=== PATIENT | male | born 1955 | race Caucasian/White ===

== ENCOUNTER 2021-01-18 08:09 | Emergency (ER) | payer OTHER ==
--- NOTE | 2021-01-18 10:55 | EDM.PDOC ---
ED HPI GENERAL MEDICAL PROBLEM - General Chief Complaint: Gastrointestinal Problem Stated Complaint: DIARRHEA/L ARM SKIN COMPLAINT Time Seen by Provider: 01/18/21 08:22 Source of Information: Reports: Patient History Limitations: Reports: No Limitations - History of Present Illness INITIAL COMMENTS - FREE TEXT/NARRATIVE: The patient presents with a rash and diarrhea. 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 He is on antibiotics and antivirals. He has had diarrhea for a few weeks. He was on immodium and his doctor told him to stop for awhile and see how it goes. He did and he still has diarrhea. He has no fever, chills, cough, chest pain, shortness of breath, abdominal pain, nausea or vomiting. He has some hives on his left arm, back and right leg. He also had some swelling to his lips this morning. He is not on any new medications. He has not used any new soaps, lotions or detergents. He is traveling through on vacation. 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 Denies: Abdominal Pain, Nausea, Vomiting : Reports: No Symptoms Musculoskeletal: Reports: No Symptoms Skin: Reports: Rash ED EXAM, GI/ABD - Physical Exam Exam: See Below Exam Limited By: No Limitations General Appearance: Alert, No Apparent Distress Ears: Normal External Exam Nose: Normal Inspection Throat/Mouth: Normal Inspection Head: Atraumatic, Normocephalic Neck: Normal Inspection Respiratory/Chest: No Respiratory Distress, Lungs Clear, Normal Breath Sounds Cardiovascular: Regular Rate, Rhythm, No Edema, No Murmur GI/Abdominal Exam: Soft, Non-Tender, No Organomegaly, No Mass Extremities: Normal Inspection Neurological: Alert, Oriented, No Motor/Sensory Deficits Skin Exam: Other (Urticaria to left arm, back and right leg. No swelling of lips now.) Course - Vital Signs Last Recorded V/S: Last Vital Signs Temp 97 F 01/18/21 08:20 Pulse 82 01/18/21 08:20 Resp 18 01/18/21 08:20 BP 116/70 01/18/21 08:20 Pulse Ox 96 01/18/21 08:20 - Orders/Labs/Meds Orders: Active Orders 24 hr Category Date Time Status OVA & PARASITES BY IMMUNOASSAY [MREF] Stat Lab 01/18/21 08:44 Ordered STOOL CULTURE/SHIGA TOXIN [MREF] Stat Lab 01/18/21 08:44 Ordered Labs: Laboratory Tests 01/18/21 01/18/21 01/18/21 Range/Units 08:55 08:55 09:35 WBC 4.54 (4.23-9.07) K/mm3 RBC 4.08 L (4.63-6.08) M/mm3 Hgb 13.0 L (13.7-17.5) gm/dl Hct 37.8 L (40.1-51.0) % MCV 92.6 H (79.0-92.2) fl MCH 31.9 (25.7-32.2) pg MCHC 34.4 (32.2-35.5) g/dl RDW Std Deviation 44.2 H (35.1-43.9) fL Plt Count 200 (163-337) K/mm3 MPV 8.3 L (9.4-12.3) fl Neut % (Auto) 68.8 H (34.0-67.9) % Lymph % (Auto) 19.8 L (21.8-53.1) % [place] % (Auto) 9.0 (5.3-12.2) % Eos % (Auto) 2.0 (0.8-7.0) Baso % (Auto) 0.2 (0.1-1.2) % Neut # (Auto) 3.12 (1.78-5.38) K/mm3 Lymph # (Auto) 0.90 L (1.32-3.57) K/mm3 [place] # (Auto) 0.41 (0.30-0.82) K/mm3 Eos # (Auto) 0.09 (0.04-0.54) K/mm3 Baso # (Auto) 0.01 (0.01-0.08) K/mm3 Sodium 137 (136-145) mEq/L Potassium 4.6 (3.5-5.1) mEq/L Chloride 103 (98-107) mEq/L Carbon Dioxide 27 (21-32) mEq/L Anion Gap 11.6 (5-15) BUN 11 (7-18) mg/dL Creatinine 1.1 (0.7-1.3) mg/dL Est Cr Clr Drug Dosing 66.50 mL/min Estimated GFR (MDRD) > 60 (>60) mL/min BUN/Creatinine Ratio 10.0 L (14-18) Glucose 93 (70-99) mg/dL Calcium 7.8 L (8.5-10.1) mg/dL Total Bilirubin 0.3 (0.2-1.0) mg/dL AST 23 (15-37) U/L ALT 34 (16-63) U/L Alkaline Phosphatase 103 (46-116) U/L Total Protein 6.3 L (6.4-8.2) g/dl Albumin 3.3 L (3.4-5.0) g/dl Globulin 3.0 gm/dL Albumin/Globulin Ratio 1.1 (1-2) C.difficile [id number] Presumptive negative C. difficile Tox (PCR) Negative - Re-Assessments/Exams Free Text/Narrative Re-Assessment/Exam: 01/18/21 10:54 I did labs and got stool sample. His CBC and CMP looks good. His stool was negative for c-dif. He does not want to be back on prednisone. He will try claritin, pepcid and benadryl. Departure - Departure Time of Disposition: 10:55 Disposition: Home, Self-Care 01 Condition: Good Clinical Impression: Hives of unknown origin Diarrhea Qualifiers: Diarrhea type: unspecified type Qualified Code(s): R19.7 - Diarrhea, unspecified - Discharge Information *PRESCRIPTION DRUG MONITORING PROGRAM REVIEWED*: Not Applicable *COPY OF PRESCRIPTION DRUG MONITORING REPORT IN PATIENT MARV: Not Applicable Referrals: PCP,Not In Area [Primary Care Provider] - Additional Instructions: Take claritin, pepcid and benadryl for the rash. Take your immodium again if that was helping. Call your doctor on Wednesday or Wednesday. If your stool culture is growing out anything, I will call you. Please return if you are worse. Sepsis Event Note (ED) - Evaluation Sepsis Screening Result: No Definite Risk - Focused Exam Vital Signs: Vital Signs Temp Pulse Resp BP Pulse Ox 01/18/21 08:20 97 F 82 18 116/70 96 - My Orders Last 24 Hours: My Active Orders 01/18/21 08:44 OVA & PARASITES BY IMMUNOASSAY [MREF] Stat STOOL CULTURE/SHIGA TOXIN [MREF] Stat - Assessment/Plan Last 24 Hours: My Active Orders 01/18/21 08:44 OVA & PARASITES BY IMMUNOASSAY [MREF] Stat STOOL CULTURE/SHIGA TOXIN [MREF] Stat
== END 2021-01-18 11:29 | disposition home or self-care (01) ==
LOC: JD.ED 08:09
DX: R19.7 Diarrhea, unspecified (principal); L50.9 Urticaria, unspecified; Z79.01 Long term (current) use of anticoagulants
CPT/HCPCS: 36415; 80053; 85025; 87045; 87046; 87328; 87329; 87493; 87899; 99282; 99284